=== PATIENT | female | born 1970 | race Two or more races ===

== ENCOUNTER 2021-02-04 09:01 | Outpatient (CLI) | payer OTHER | END 2021-02-04 23:59 | disposition home or self-care (01) | LOC: EDBD → LAB 09:01 | PROVIDERS: ATTEND Student in an Organized Health Care Education/Training Program | DX: Z01.812 Encounter for preprocedural laboratory examination (principal); Z20.822 Contact with and (suspected) exposure to COVID-19 | CPT/HCPCS: C9803; U0003 ==

== ENCOUNTER 2021-02-09 11:37 | Day surgery (SDC) | payer OTHER ==
[2021-02-09] MEDS ORDERED: BUPIVACAINE 0.5 % PF 150 MG/30 ML VIAL ONE (13:20)
[2021-02-09] MEDS ORDERED: BUPIVACAINE 0.25% 75 MG/30 ML VIAL ONE (13:20)
[2021-02-09] MEDS ORDERED: BACITRACIN 50000 UNITS/VIAL ONE (13:20)
[2021-02-09] MEDS ORDERED: ANESTHESIA TRAY IN PYXIS 1 EA TRAY MC ONE (14:13)
[2021-02-09] MEDS ORDERED: FENTANYL PF 100MCG/2ML AMPUL ONE ×2 (14:29→15:30)
[2021-02-09] MEDS ORDERED: MIDAZOLAM HCL 2 MG/2ML VIAL ONE (14:29)
== END 2021-02-09 16:55 | disposition home or self-care (01) ==
LOC: DS 11:37
PROVIDERS: ATTEND Student in an Organized Health Care Education/Training Program
DX: G56.01 Carpal tunnel syndrome, right upper limb (principal); M65.831 Other synovitis and tenosynovitis, right forearm
CPT/HCPCS: 25115; 64721; 71045; 84703; A6402; J0690; J1100; J2250; J2405; J2704; J3010 ×2; J3490